=== PATIENT | male | born 1970 | race Caucasian/White ===

== ENCOUNTER 2016-10-19 08:49 | Emergency (ER) | payer OTHER ==
[~2016-10-19] VITALS: Ht 177.8 cm; Wt 120.2 kg
[2016-10-19] MEDS ORDERED: MULT1TAB18 PO (09:08)
[2016-10-19] MEDS ORDERED: FISH100049 PO (09:08)
[2016-10-19] MEDS ORDERED: ASPI81TA85 PO (09:08)
[2016-10-19] MEDS ORDERED: ASPIRIN 81 MG CHEW TABLET PO ONE (09:30)
[2016-10-19 09:53] LABS: BASO % 0.5 % (0.0-1.0); EOS % 1.6 % (0.0-3.0); LARGE UNSTAINED CELL # 0.1 K/mm3 (0.0-0.4); LYMPH # 1.1 K/mm3 (1.5-4.5); LYMPH % 29.8 % (24.0-44.0); MEAN CORPUSCULAR HEMOGLOBIN 29.3 pg (27.0-33.0); MEAN CORPUSCULAR HGB CONC 34.5 g/dl (32.0-36.5); MONO # 0.3 K/mm3 (0.0-0.8); MONO % 7.4 % (0.0-5.0); NEUTROPHILS % 58.6 % (36.0-66.0); PLATELET COUNT, AUTOMATED 172 k/mm3 (150-450); WHITE BLOOD COUNT 3.4 K/mm3 (4.0-10.0)
--- NOTE | 2016-10-19 10:14 | REP ---
PORTABLE CHEST: AP portable view of the chest is performed and compared to a prior study of 08/16/2003. There is mild linear fibroatelectatic change in each lung base without acute infiltrate or pulmonary edema. The heart is normal in size. The mediastinal silhouette is unremarkable and unchanged. IMPRESSION: No acute infiltrate. Signed by Travis Lynn MD 10/19/2016 03:53 P
[2016-10-19 10:25] LABS: ANION GAP 9 MEQ/L (8-16); BLOOD UREA NITROGEN 11 MG/DL (7-18); CALCIUM LEVEL 8.9 MG/DL (8.5-10.1); CARBON DIOXIDE LEVEL 26 MEQ/L (21-32); CHLORIDE LEVEL 105 MEQ/L (98-107); CREATININE FOR GFR 0.95 MG/DL (0.70-1.30); GLOMERULAR FILTRATION RATE > 60.0 (>60); GLUCOSE, FASTING 103 MG/DL (70-105); POTASSIUM SERUM 3.7 MEQ/L (3.5-5.1); SODIUM LEVEL 140 MEQ/L (136-145)
[2016-10-19] MEDS ORDERED: ATEN25TA PO (10:58)
[2016-10-19 11:01] VITALS: BP 150/90
--- NOTE | 2016-10-19 21:44 | ECGEPIP ---
Stationary ECG Study [facility] - ED Test Date: 2016-10-19 Pat Name: THERESE ADAMES Department: Room: - Gender: M Content Manager: JT : 1970 Requested By: JOHN Zimmer Order Number: [id number] Reading MD: Key Calderón Measurements Intervals [place] Rate: 84 P: 47 W[place]: 160 QRS: 53 QRSD: 81 T: 106 QT: 318 QTc: 377 Interpretive Statements SINUS RHYTHM NONSPECIFIC T-WAVE ABNORMALITY NO PRIOR FOR COMPARISON Electronically Signed On 10-19-2016 21:44:02 EDT by Key Calderón
== END 2016-10-19 11:14 | disposition home or self-care (01) ==
LOC: M ED 09:21
DX: R07.9 Chest pain, unspecified (principal); I10 Essential (primary) hypertension

== ENCOUNTER 2019-10-27 09:47 | Emergency (ER) | payer BC, OTHER ==
[~2019-10-27] VITALS: Ht 177.8 cm; Wt 118.7 kg
[~2019-10-27 09:47] MED LIST: ASPI81TA85 PO; ATEN25TA PO; FISH100049 PO; MULT1TAB18 PO
[2019-10-27 09:48] VITALS: BP 135/68
[2019-10-27] MEDS ORDERED: COLA100C5 PO (09:57)
[2019-10-27] MEDS ORDERED: ATEN25TA PO (09:57)
[2019-10-27] MEDS ORDERED: ATOR1TAB21 PO (09:57)
[2019-10-27] MEDS ORDERED: LISI-538 (09:57)
[2019-10-27] MEDS ORDERED: LEVO88TA3 (09:57)
[2019-10-27] MEDS ORDERED: ALLO100T (09:57)
[2019-10-27] MEDS ORDERED: META0.52 PO (10:35)
[2019-10-27] MEDS ORDERED: LIDO1CRE2 TOP (10:35)
== END 2019-10-27 10:52 | disposition home or self-care (01) ==
LOC: M ED 09:47
DX: K60.0 Acute anal fissure (principal); I10 Essential (primary) hypertension; Z79.899 Other long term (current) drug therapy